=== PATIENT | female | born 1970 | race Caucasian/White ===

== ENCOUNTER 2016-10-16 23:16 | Emergency (ER) | payer MEDICAID, MEDICARE ==
[~2016-10-16] VITALS: Ht 162.6 cm; Wt 63.5 kg
[~2016-10-16 23:16] MED LIST: GABA-531 PO; INSU100V9 SQ; SIMV10TA2 PO
[2016-10-16 23:18] VITALS: BP_SYST 144
[2016-10-16] MEDS ORDERED: NACL 0.9% 1,000 ML IV ONE (23:45)
[2016-10-17 00:11] LABS: BASOPHILS % (AUTO) 0.6 % (0.0-2.0); EOSINOPHILS # (AUTO) 0.7 K/uL (0.0-0.4); EOSINOPHILS % (AUTO) 8.7 % (0.0-4.0); HEMATOCRIT 35.1 % (36-48); HEMOGLOBIN 12.2 g/dL (12.0-16.0); LYMPHOCYTES # (AUTO) 2.6 K/uL (1.0-5.5); LYMPHOCYTES % (AUTO) 33.7 % (20.5-51.5); MEAN CORPUSCULAR HEMOGLOBIN 31 pg (27-31); MEAN CORPUSCULAR HGB CONC 35 % (32-36); MEAN CORPUSCULAR VOLUME 89 fL (79.0-98.0); MONOCYTES # (AUTO) 0.6 K/uL (0.0-1.0); MONOCYTES % (AUTO) 7.9 % (1.7-9.3); NEUTROPHILS # (AUTO) 3.7 K/uL (1.8-7.7); NEUTROPHILS % (AUTO) 49.1 % (40.0-70.0); PLATELET COUNT (AUTO) 226 K/uL (130-430); RED BLOOD CELL COUNT(AUTO) 3.96 MIL/uL (4.2-6.2); WHITE BLOOD COUNT (AUTO) 7.6 K/uL (4.8-10.8)
[2016-10-17 00:34] LABS: ALANINE AMINOTRANSFERASE 27 U/L (12-78); ALBUMIN 3.6 g/dL (3.4-4.8); ANION GAP 8 (5-15); ASPARTATE AMINOTRANSFERASE 17 U/L (10-37); CALCIUM 8.9 mg/dL (8.4-11.0); CHLORIDE 102 mmol/L (98-107); CREATININE 0.96 mg/dL (0.55-1.30); GLUCOSE 319 mg/dL (70-99); SODIUM SERUM 138 mmol/L (136-145); TOTAL BILIRUBIN 0.2 mg/dL (0.0-1.0); UREA NITROGEN, BLOOD 14 mg/dL (8-21)
[2016-10-17 00:35] LABS: SALICYLATE 1 mg/dL (3-30)
[2016-10-17 00:37] LABS: ACETAMINOPHEN < 1 ug/mL (1-30); GFR AFRICAN AMERICAN 80 mL/min (>90)
[2016-10-17 00:38] LABS: ALCOHOL, BLOOD < 3 mg/dL (<10)
[2016-10-17 00:58] LABS: BARBITURATE, URINE NEGATIVE (NEG <=200); BENZODIAZEPINE, URINE NEGATIVE (NEG <=150); CANNABINOID, URINE NEGATIVE (NEG <=50); COCAINE, URINE NEGATIVE (NEG <=150); METHAMPHETAMINES SCREEN,URINE NEGATIVE (NEG <=500); OPIATE, URINE NEGATIVE (NEG <=100); PHENCYCLIDINE SCREEN,URINE NEGATIVE (NEG <=25); UR TRICYCLIC ANTIDEPRESSANTS POSITIVE (NEG <=300); URINE AMPHETAMINE NEGATIVE (NEG <=500); URINE METHADONE NEGATIVE (NEG <=200); URINE OXYCODONE SCREEN NEGATIVE (NEG <=100); URINE PROPOXYPHENE SCREEN NEGATIVE (NEG <=300)
[2016-10-17 01:33] VITALS: BP_SYST 133
== END 2016-10-17 01:33 | disposition home or self-care (01) ==
LOC: SED 23:16
DX: T50.901A Poisoning by unspecified drugs, medicaments and biological substances, accidental (unintentional), initial encounter (principal); E11.40 Type 2 diabetes mellitus with diabetic neuropathy, unspecified; F41.9 Anxiety disorder, unspecified; Z79.4 Long term (current) use of insulin; Y92.89 Other specified places as the place of occurrence of the external cause
CPT/HCPCS: 36415; 80053; 80307; 85025; 96360; 99285; G0480; G0481; G0482; J7030

== ENCOUNTER 2018-06-10 03:18 | Emergency (ER) | payer SELFPAY ==
[~2018-06-10] VITALS: Ht 162.6 cm; Wt 62.6 kg
[2018-06-10 03:20] VITALS: BP_SYST 108
--- NOTE | 2018-06-10 03:20 | NUR ---
Pt placed to ER bed 1 via W/C, to gown, to monitoring and evaluation advisor. Pt appears groggy, yet AAOx3. Sons present and state that as pt came down stairs from bedroom, she got dizzy and fell into a chair. Denies hitting head, unknown if LOC. Pt also c/o severe abdominal pain with N/V.
--- NOTE | 2018-06-10 03:25 | NUR ---
Dr. Kwong at bedside.
--- NOTE | 2018-06-10 03:35 | NUR ---
# 20 gauge angiocath placed to RAC. Use of asceptic technique. Opsite placed over site. Blood return noted. Blood for lab drawn from site. Flushed with 10 cc of normal saline. No evidence of infiltration noted. Patient tolerated well.
--- NOTE | 2018-06-10 03:40 | NUR ---
Pt.'s son, Amador, leaves phone number for status updates ([phone])
[2018-06-10] MEDS ORDERED: INSU100V SQ (03:45)
[2018-06-10] MEDS ORDERED: NACL 0.9% 1,000 ML IV ONE (03:45)
[2018-06-10] MEDS ORDERED: ONDANSETRON HCL 4 MG/2 ML VIAL IVP ONE ×2 (03:45→06:30)
[2018-06-10] MEDS ORDERED: ONDANSETRON HCL 4 MG/2 ML VIAL ONE ×2 (03:46→06:24)
[2018-06-10] MEDS ORDERED: MORPHINE 4 MG/ML INJ. SYRINGE ONE (03:55)
[2018-06-10 04:04] LABS: BASOPHILS # (AUTO) 0.1 K/uL (0.0-0.2); BASOPHILS % (AUTO) 0.7 % (0.0-2.0); EOSINOPHILS # (AUTO) 0.4 K/uL (0.0-0.4); EOSINOPHILS % (AUTO) 4.6 % (0.0-4.0); HEMATOCRIT 39.9 % (36-48); HEMOGLOBIN 12.7 g/dL (12.0-16.0); LYMPHOCYTES # (AUTO) 3.8 K/uL (1.0-5.5); LYMPHOCYTES % (AUTO) 38.6 % (20.5-51.5); MEAN CORPUSCULAR HEMOGLOBIN 29 pg (27-31); MEAN CORPUSCULAR HGB CONC 32 % (32-36); MEAN CORPUSCULAR VOLUME 92 fL (79.0-98.0); MONOCYTES # (AUTO) 0.7 K/uL (0.0-1.0); MONOCYTES % (AUTO) 6.8 % (1.7-9.3); NEUTROPHILS # (AUTO) 4.8 K/uL (1.8-7.7); NEUTROPHILS % (AUTO) 49.3 % (40.0-70.0); PLATELET COUNT (AUTO) 314 K/uL (130-430); RED BLOOD CELL COUNT(AUTO) 4.34 MIL/uL (4.2-6.2); RED CELL DISTRIBUTION WIDTH 11.8 % (9.0-15.0); WHITE BLOOD COUNT (AUTO) 9.8 K/uL (4.8-10.8)
[2018-06-10 04:06] LABS: CALCIUM 9.3 mg/dL (8.4-11.0); CREATININE 0.82 mg/dL (0.55-1.30); POTASSIUM 3.1 mmol/L (3.5-5.1)
[2018-06-10 04:11] LABS: INR 0.9 (0.8-1.2); PROTHROMBIN TIME 9.6 SECS (9.5-12.5)
[2018-06-10 04:12] LABS: ALBUMIN 3.7 g/dL (3.4-4.8); TOTAL BILIRUBIN 0.2 mg/dL (0.0-1.0)
--- NOTE | 2018-06-10 04:15 | NUR ---
Pt to CT via stretcher.
--- NOTE | 2018-06-10 04:30 | NUR ---
Pt returns from CT. Pt states that pain level only decreased to 8/10. Dr. Kwong notified.
[2018-06-10 04:35] LABS: BILIRUBIN,URINE NEGATIVE (NEGATIVE); BLOOD, URINE NEGATIVE (NEGATIVE); CLARITY/URINE SL HAZY (CLEAR); COLOR,URINE YELLOW (YELLOW); GLUCOSE,URINE 3+ (NEGATIVE); KETONES,URINE NEGATIVE (NEGATIVE); LEUKOCYTE ESTERASE ,URINE NEGATIVE (NEGATIVE); NITRITE, URINE POSITIVE (NEGATIVE); PROTEIN URINE TRACE (NEGATIVE); UROBILINOGEN,URINE 0.2 (0.2-1.0)
[2018-06-10] MEDS ORDERED: MORPHINE 4 MG/ML INJ. SYRINGE IVP ONE ×2 (04:45→05:00)
[2018-06-10 05:00] LABS: BACTERIA,URINE MANY /HPF (None Seen); RBC,URINE 0-3 /HPF (0-3)
[2018-06-10 05:01] LABS: HYALINE CASTS, URINE 0-10 /LPF (None Seen); MUCUS,URINE 1+ /LPF (None Seen)
[2018-06-10 05:03] LABS: BARBITURATE, URINE NEGATIVE (NEG <=200); BENZODIAZEPINE, URINE NEGATIVE (NEG <=150); CANNABINOID, URINE NEGATIVE (NEG <=50); COCAINE, URINE NEGATIVE (NEG <=150); METHAMPHETAMINES SCREEN,URINE NEGATIVE (NEG <=500); OPIATE, URINE POSITIVE (NEG <=100); PHENCYCLIDINE SCREEN,URINE NEGATIVE (NEG <=25); UR TRICYCLIC ANTIDEPRESSANTS NEGATIVE (NEG <=300); URINE AMPHETAMINE NEGATIVE (NEG <=500); URINE METHADONE NEGATIVE (NEG <=200); URINE OXYCODONE SCREEN NEGATIVE (NEG <=100); URINE PROPOXYPHENE SCREEN NEGATIVE (NEG <=300)
--- NOTE | 2018-06-10 05:05 | NUR ---
Pt to CT of abdomen/pelvis.
[2018-06-10] MEDS ORDERED: cefTRIAXone 1 GM IVPB PREMIX 50 ML IV ONE (05:15)
--- NOTE | 2018-06-10 05:15 | NUR ---
Pt returns from CT. Pt states that pain level is improved, tolerable at 4/10. No needs verbalized at this time.
--- NOTE | 2018-06-10 05:21 | NUR ---
Pt.'s son at bedside.
--- NOTE | 2018-06-10 06:19 | NUR ---
Pt vomiting copious amounts of undigested food. Dr. Kwong notified and pt to be medicated with Zofran 4 mg IVP.
[2018-06-10] MEDS ORDERED: MAG HYDROX/AL HYDROX/SIMETH 30 ML, BELLADONNA ALKALOIDS/PHENOBARB 10 ML, LIDOCAINE VISC... PO ONE ×3 (06:30)
--- NOTE | 2018-06-10 06:50 | NUR ---
No further vomiting noted. Pt states that nausea has subsided and feels much better.
[2018-06-10 07:00] VITALS: BP_SYST 121
--- NOTE | 2018-06-10 07:00 | NUR ---
Patient given written and verbal discharge instructions and verbalizes understanding. ER MD discussed with patient the results and treatment provided. Patient in stable condition. ID arm band removed. IV catheter removed intact and dressing applied, no active bleeding. Rx of Protonix and Keflex given. Patient educated on pain management and to follow up with PMD. Pain Scale 1/10. Opportunity for questions provided and answered. Medication side effect fact sheet provided.
== END 2018-06-10 07:00 | disposition home or self-care (01) ==
LOC: SED 03:18
DX: N39.0 Urinary tract infection, site not specified (principal); E11.40 Type 2 diabetes mellitus with diabetic neuropathy, unspecified; F41.9 Anxiety disorder, unspecified; Z79.4 Long term (current) use of insulin
CPT/HCPCS: 36415; 71045; 70450; 74176; 80053; 80307; 81000; 82550; 84484; 85025; 85610; 87086; 96361; 96365; 96366; 96375; 99284; G0482; J0696; J2001; J2270; J2405; J7030; 96376

== ENCOUNTER 2020-12-13 18:19 | Emergency (ER) | payer MEDICAID ==
[~2020-12-13] VITALS: Ht 162.6 cm; Wt 68.0 kg
[~2020-12-13 18:19] MED LIST changes: -GABA-531 PO; +INSU100V SQ; -SIMV10TA2 PO
[2020-12-13 18:45] VITALS: BP_SYST 139
--- NOTE | 2020-12-13 18:50 | NUR ---
Patient to ER bed 4 to gown for evaluation. Side rails up. Report given to Lula GAN.
--- NOTE | 2020-12-13 19:00 | NUR ---
EKG done given to Dr. Bardales
--- NOTE | 2020-12-13 19:01 | NUR ---
Pt. bib daughter with c/o not feeling well for 2 days, states feels clammy and has chills, epigastric pain 10/10 and has vomitted 2 X today, hx of insulin dependent diabetes accu check done bs 310, pt. states did not take insulin last night because did not feel well. hx. of pancreatitis too.
--- NOTE | 2020-12-13 19:23 | NUR ---
report to Vero
--- NOTE | 2020-12-13 19:30 | NUR ---
SOPHIA Francis at bedside examining patient.
[2020-12-13] MEDS ORDERED: MAG HYDROX/AL HYDROX/SIMETH 30 ML, LIDOCAINE VISCOUS 2% 15ML (PO) 15 ML, DICYCLOMINE HC... PO ONE ×3 (19:45)
[2020-12-13 20:09] LABS: BASOPHILS # (AUTO) 0.1 K/uL (0.0-0.2); BASOPHILS % (AUTO) 0.7 % (0.0-2.0); EOSINOPHILS # (AUTO) 0.1 K/uL (0.0-0.4); EOSINOPHILS % (AUTO) 0.8 % (0.0-4.0); HEMATOCRIT 37.1 % (36-48); HEMOGLOBIN 12.4 g/dL (12.0-16.0); LYMPHOCYTES # (AUTO) 1.6 K/uL (1.0-5.5); LYMPHOCYTES % (AUTO) 19.6 % (20.5-51.5); MEAN CORPUSCULAR HEMOGLOBIN 31 pg (27-31); MEAN CORPUSCULAR HGB CONC 33 % (32-36); MEAN CORPUSCULAR VOLUME 93 fL (79.0-98.0); MONOCYTES # (AUTO) 0.4 K/uL (0.0-1.0); MONOCYTES % (AUTO) 4.9 % (1.7-9.3); PLATELET COUNT (AUTO) 282 K/uL (130-430); RED BLOOD CELL COUNT(AUTO) 4.01 MIL/uL (4.2-6.2); RED CELL DISTRIBUTION WIDTH 13.4 % (9.0-15.0); WHITE BLOOD COUNT (AUTO) 8.2 K/uL (4.8-10.8)
[2020-12-13 20:17] LABS: ANION GAP 12 (5-15); CALCIUM 9.2 mg/dL (8.4-11.0); CHLORIDE 102 mmol/L (98-107); CREATININE 1.12 mg/dL (0.55-1.30); GLUCOSE 334 mg/dL (70-99); POTASSIUM 4.2 mmol/L (3.5-5.1); SODIUM SERUM 135 mmol/L (136-145); UREA NITROGEN, BLOOD 21 mg/dL (8-21)
[2020-12-13 20:19] LABS: GFR AFRICAN AMERICAN 66 mL/min (>90)
[2020-12-13 20:24] LABS: ALANINE AMINOTRANSFERASE 36 U/L (12-78); ALBUMIN 3.7 g/dL (3.4-4.8); ALCOHOL, BLOOD < 3 mg/dL (<10); ASPARTATE AMINOTRANSFERASE 30 U/L (10-37); LIPASE 167 U/L (73-393); TOTAL BILIRUBIN 0.2 mg/dL (0.0-1.0)
[2020-12-13] MEDS ORDERED: MORPHINE 4 MG INJ. 4 MG/ML VIAL IVP ONE (21:15)
[2020-12-13 21:18] LABS: BILIRUBIN,URINE NEGATIVE (NEGATIVE); BLOOD, URINE NEGATIVE (NEGATIVE); CLARITY/URINE CLEAR (CLEAR); COLOR,URINE YELLOW (YELLOW); GLUCOSE,URINE 2+ (NEGATIVE); KETONES,URINE 1+ (NEGATIVE); LEUKOCYTE ESTERASE ,URINE NEGATIVE (NEGATIVE); PH,URINE 5.5 (5.0-8.0); PROTEIN URINE TRACE (NEGATIVE); UROBILINOGEN,URINE 0.2 (0.2-1.0)
[2020-12-13 21:25] LABS: NITRITE, URINE NEGATIVE (NEGATIVE)
[2020-12-13 21:26] LABS: BACTERIA,URINE FEW /HPF (None Seen); RBC,URINE NONE SEEN /HPF (0-3); WBC,URINE 0-3 /HPF (0-3)
[2020-12-13 21:27] LABS: MUCUS,URINE None Seen /LPF (None Seen)
--- NOTE | 2020-12-13 21:30 | NUR ---
Patient resting quietly. No acute distress noted. Vital signs within normal range.
[2020-12-13] MEDS ORDERED: DICY10CA13 PO (23:04)
[2020-12-13] MEDS ORDERED: OMEP40CA13 PO (23:04)
[2020-12-13] MEDS ORDERED: ONDA-8 TL (23:04)
[2020-12-13 23:31] VITALS: BP_SYST 147
--- NOTE | 2020-12-13 23:33 | NUR ---
Patient given written and verbal discharge instructions and verbalizes understanding. DR. HOLLEY CORTES MD discussed with patient the results and treatment provided. Patient in stable condition. ID arm band removed. IV catheter removed intact and dressing applied, no active bleeding. Rx of DICYCLOMINE, OMEPRAZOLE, ZOFRAN given. Patient educated on pain management and to follow up with PMD. Pain Scale 0/10. Opportunity for questions provided and answered. Medication side effect fact sheet provided.
== END 2020-12-13 23:33 | disposition home or self-care (01) ==
LOC: SED 18:19
DX: R10.13 Epigastric pain (principal); E10.65 Type 1 diabetes mellitus with hyperglycemia; F41.9 Anxiety disorder, unspecified; Z79.4 Long term (current) use of insulin; Z79.899 Other long term (current) drug therapy
CPT/HCPCS: 36415; 76705; 80053; 81000; 82962; 83605; 83690; 84484; 85025; 87040; 93005; 96374; 99285; G0482; J2001; J2270

== ENCOUNTER 2022-04-17 11:02 | Inpatient (IN) | payer MEDICAID ==
[~2022-04-17] VITALS: Ht 162.6 cm; Wt 65.8 kg
[~2022-04-17 11:02] MED LIST changes: +DICY10CA13 PO; +OMEP40CA20 PO; +ONDA-8 TL
[2022-04-17 11:10] VITALS: BP_SYST 90
--- NOTE | 2022-04-17 11:10 | NUR ---
Patient triaged and placed in waiting room. VSS and patient appears in no acute distress at this time. Accompanied by DAUGHTER, awaiting available bed, and MD notified of need for MSE.
[2022-04-17 12:03] LABS: BASOPHILS # (AUTO) 0.1 K/uL (0.0-0.2); BASOPHILS % (AUTO) 0.7 % (0.0-2.0); EOSINOPHILS # (AUTO) 0.3 K/uL (0.0-0.4); EOSINOPHILS % (AUTO) 2.7 % (0.0-4.0); HEMATOCRIT 42.1 % (36-48); HEMOGLOBIN 14.3 g/dL (12.0-16.0); LYMPHOCYTES # (AUTO) 2.5 K/uL (1.0-5.5); MEAN CORPUSCULAR HEMOGLOBIN 30 pg (27-31); MEAN CORPUSCULAR HGB CONC 34 % (32-36); MEAN CORPUSCULAR VOLUME 90 fL (79.0-98.0); MONOCYTES # (AUTO) 0.4 K/uL (0.0-1.0); MONOCYTES % (AUTO) 4.5 % (1.7-9.3); NEUTROPHILS # (AUTO) 6.6 K/uL (1.8-7.7); NEUTROPHILS % (AUTO) 67.1 % (40.0-70.0); PLATELET COUNT (AUTO) 345 K/uL (130-430); RED BLOOD CELL COUNT(AUTO) 4.69 MIL/uL (4.2-6.2); RED CELL DISTRIBUTION WIDTH 12.6 % (9.0-15.0); WHITE BLOOD COUNT (AUTO) 9.8 K/uL (4.8-10.8)
--- NOTE | 2022-04-17 12:16 | NUR ---
Placed in room 3 . Placed on manager cardiac, blood pressure machine and pulse oximeter. To gown for exam. Side rails up. Report given to ELVIA PACE.
[2022-04-17 12:17] LABS: ANION GAP 7 (5-15); CALCIUM 9.4 mg/dL (8.4-11.0); CHLORIDE 97 mmol/L (98-107); CREATININE 1.05 mg/dL (0.55-1.30); GLUCOSE 396 mg/dL (70-99); POTASSIUM 4.4 mmol/L (3.5-5.1); UREA NITROGEN, BLOOD 19 mg/dL (8-21)
[2022-04-17 12:29] LABS: ALANINE AMINOTRANSFERASE 21 U/L (12-78); AMYLASE 130 U/L (0-100); ASPARTATE AMINOTRANSFERASE 21 U/L (10-37); C-REACTIVE PROTEIN QUANT < 0.2 mg/dL (0-0.5); GFR AFRICAN AMERICAN 71 mL/min (>90); LIPASE 1655 U/L (73-393); TOTAL BILIRUBIN 0.2 mg/dL (0.0-1.0)
[2022-04-17] MEDS ORDERED: KETOROLAC TROMETHAMINE 60 MG/2 ML VIAL IM ONE (12:45)
[2022-04-17] MEDS ORDERED: ONDANSETRON 4 MG ODT TAB PO ONE (12:45)
[2022-04-17 14:37] LABS: CHOLESTEROL 336 mg/dL (<200); HDL CHOLESTEROL 62 mg/dL (>55); LDL CHOLESTEROL 231 mg/dL (<100); TRIGLYCERIDES 199 mg/dL (30-150)
--- NOTE | 2022-04-17 15:18 | NUR ---
Admit bed requested Patient will be admitted to care of . Admitted to M/S unit. Diagnosis: ACUTE PACREATITIS Inpatient (Yes) Observation (Yes) Orientation concerns or request close to nursing station (No) Covid Status: NEGATIVE On vent or bipap: NO Isolation requirements STANDARD Needs a sitter NO From Home (Yes) Requires Dialysis (No) Med Rec Completed (Yes)
[2022-04-17 15:22] LABS: BILIRUBIN,URINE NEGATIVE (NEGATIVE); BLOOD, URINE NEGATIVE (NEGATIVE); CLARITY/URINE SL CLOUDY (CLEAR); COLOR,URINE YELLOW (YELLOW); GLUCOSE,URINE 3+ (NEGATIVE); KETONES,URINE NEGATIVE (NEGATIVE); LEUKOCYTE ESTERASE ,URINE NEGATIVE (NEGATIVE); NITRITE, URINE POSITIVE (NEGATIVE); PH,URINE 5.5 (5.0-8.0); PROTEIN URINE NEGATIVE (NEGATIVE); UROBILINOGEN,URINE 0.2 (0.2-1.0)
[2022-04-17 15:30] LABS: BACTERIA,URINE MANY /HPF (None Seen); MUCUS,URINE None Seen /LPF (None Seen); RBC,URINE NONE SEEN /HPF (0-3)
[2022-04-17] MEDS ORDERED: KCL 20 mEq in D5NS 1000 mL 1,000 ML IV ONE (15:30)
[2022-04-17] MEDS ORDERED: cefTRIAXone 1 GM IVPB PREMIX 50 ML IV ONE (15:45)
[2022-04-17] MEDS ORDERED: HYDROmorphone 1 MG/ML INJ. CARTRIDGE IVP PRN (16:15)
[2022-04-17] MEDS ORDERED: ONDANSETRON HCL 4 MG/2 ML VIAL IVP PRN (16:15)
[2022-04-17] MEDS ORDERED: GLIP5TAB13 PO (17:07)
[2022-04-17] MEDS ORDERED: NEU300 PO (17:07)
[2022-04-17] MEDS ORDERED: METF-518 PO ×2 (17:07)
--- NOTE | 2022-04-17 18:11 | NUR ---
ROOM OBTAINED 106B. REPORT CALLED AND GIVEN TO GERARDO RN/ EMT VERÓNICA SENDING PT TO FLOOR IN W/C.
--- NOTE | 2022-04-17 18:15 | NUR ---
RECEIVED REPORT FROM ER NURSE
--- NOTE | 2022-04-17 18:30 | NUR ---
OPENING NOTE PT CAME TO MST UNIT. VITAL SIGNS: 96.9,132/74,87,99% RA, 17. PT AMBULATES TO BATHROOM INDEPENDENTLY. DENIES ANY ACUTE DISTRESS OR SHORTNESS OF BREATH. IV RUNNING WITHOUT RATE. WILL PLACE IV PUMPING MACHINE ORDERED. IV SITE REMAIN INTACT AND PATENT. NO S/S INFILTRATION OR INFECTION. BED IS LOCKED AND AT LOW POSITION. ENCOURAGED TO USE CALL LIGHT FOR ASSISTANCE. WILL CONTINUE TO MONITOR.
--- NOTE | 2022-04-17 19:00 | NUR ---
CLOSING NOTE PT IN BED, HAVING DINNER. DENIES ANY ACUTE DISTRESS. IV RUNNING ORDERED. IV SITE REMAIN CLEAN AND PATENT. SAFETY PRECAUTION IN PLACED. BED IS LOCKED AND AT LOW POSITION. ENDORSED CARE TO MEDICAL ADMINISTRATIVE NURSE.
[2022-04-17 21:52] VITALS: BP_SYST 126
--- NOTE | 2022-04-17 22:15 | NUR ---
DR. KHAN PATIENT SEEN BY DR. KHAN WITH NEW ORDERS, WILL CONTINUE TO MONITOR.
[2022-04-18 01:06] VITALS: BP_SYST 121
[2022-04-18] MEDS: KETOROLAC TROMETHAMINE 15 MG VIAL IVP PRN ×3 (03:21→16:58)
[2022-04-18] MEDS: INSULIN REGULAR, HUMAN 100 UNITS/ML, 3 ML VIAL (humuLIN R) SUBCUT PRN ×4 (05:42→20:37)
[2022-04-18] MEDS: KCL 20 mEq in NS 1000 mL 1,000 ML IV SCH ×2 (05:57→08:30)
[2022-04-18] MEDS ORDERED: KCL 20 mEq in NS 1000 mL 1,000 ML IV ONE (05:58)
[2022-04-18 08:00] VITALS: BP_SYST 136
[2022-04-18 08:53] LABS: BASOPHILS # (AUTO) 0.1 K/uL (0.0-0.2); BASOPHILS % (AUTO) 0.9 % (0.0-2.0); EOSINOPHILS # (AUTO) 0.7 K/uL (0.0-0.4); EOSINOPHILS % (AUTO) 8.3 % (0.0-4.0); HEMATOCRIT 32.8 % (36-48); HEMOGLOBIN 11.3 g/dL (12.0-16.0); LYMPHOCYTES # (AUTO) 2.8 K/uL (1.0-5.5); LYMPHOCYTES % (AUTO) 33.1 % (20.5-51.5); MEAN CORPUSCULAR HEMOGLOBIN 31 pg (27-31); MEAN CORPUSCULAR HGB CONC 35 % (32-36); MEAN CORPUSCULAR VOLUME 89 fL (79.0-98.0); MONOCYTES # (AUTO) 0.5 K/uL (0.0-1.0); MONOCYTES % (AUTO) 5.7 % (1.7-9.3); NEUTROPHILS # (AUTO) 4.3 K/uL (1.8-7.7); PLATELET COUNT (AUTO) 277 K/uL (130-430); RED BLOOD CELL COUNT(AUTO) 3.71 MIL/uL (4.2-6.2); RED CELL DISTRIBUTION WIDTH 12.3 % (9.0-15.0); WHITE BLOOD COUNT (AUTO) 8.3 K/uL (4.8-10.8)
[2022-04-18 09:13] LABS: CALCIUM 8.4 mg/dL (8.4-11.0); CREATININE 0.94 mg/dL (0.55-1.30); POTASSIUM 4.2 mmol/L (3.5-5.1)
--- NOTE | 2022-04-18 09:15 | NUR ---
CONSULT GI ACUTE PANCREATITIS DR AGUILAR [phone] DR BAJWA TANK PROCESSOR S/W MARIA INES EXCHANGE
[2022-04-18 12:00] VITALS: BP_SYST 147
--- NOTE | 2022-04-18 13:30 | NUR ---
SHOWER PT OKAY TO TAKE SHOWER PER DR. KHAN
--- NOTE | 2022-04-18 13:35 | NUR ---
PT CAME BACK FROM SHOWER PT TOLERATED WELL.
--- NOTE | 2022-04-18 15:15 | NUR ---
GI CONSULT DR. ISRAEL AT BEDSIDE, ASSESSING PT. RECEIVED NEW ORDER.
[2022-04-18 16:00] VITALS: BP_SYST 135
[2022-04-18] MEDS: LR 1,000 ML IV SCH ×2 (16:43→20:15)
--- NOTE | 2022-04-18 17:00 | NUR ---
ROUNDING PT IN BED, RESTING. REQUEST FOR PAIN MEDICATION ORDERED. BS CHECKED. ENCOURAGED TO USE CALL LIGHT FOR ASSISTANCE.
--- NOTE | 2022-04-18 18:49 | NUR ---
CLOSING NOTE PT IN BED, KYE ANY DISCOMFORT OR ACUTE DISTRESS. IV RUNNING ORDERED.IV SITE REMAIN PATENT AND INTACT.NO S/S OF INFILTRATION OR INFECTION NOTED. ENCOURAGED TO USE CALL LIGHT FOR ASSISTANCE. BED IS LOCKED AND AT LOW POSITION. SAFETY PRECAUTION IN PLACED. WILL ENDORSE CARE TO CONTINUOUS PILLOWCASE CUTTER NURSE.
[2022-04-18 20:00] VITALS: BP_SYST 146
[2022-04-18] MEDS ORDERED: ENOXAPARIN SODIUM 40 MG/0.4 ML SYRINGE SUBCUT SCH (21:00)
[2022-04-19] VITALS: BP_SYST 138
[2022-04-19] MEDS: LR 1,000 ML IV SCH ×3 (01:15→13:11)
[2022-04-19] MEDS: INSULIN REGULAR, HUMAN 100 UNITS/ML, 3 ML VIAL (humuLIN R) SUBCUT PRN ×2 (05:55→13:23)
[2022-04-19] MEDS: KETOROLAC TROMETHAMINE 15 MG VIAL IVP PRN ×2 (06:05→13:06)
[2022-04-19 08:00] VITALS: BP_SYST 145
[2022-04-19 11:27] VITALS: BP_SYST 140
[2022-04-19] MEDS ORDERED: LevALBUTEROL HCL 1.25 MG/0.5 ML *CONC.* VIAL.NEB (XOPENEX CONC.) INH SCH (14:00)
--- NOTE | 2022-04-19 15:23 | NUR ---
CONSULTATION PAGED REASON FOR CONSULTATION ICH WAS CONSULT CALED?Y PERSON WHO WAS NOTIFIED:TEXT MESSAGED MARK JARA CONSULTING PHYSICIAN:MARK FELDER DIRECTOR OF OPERATIONS SUPPORT SPECIALTY:NEURO DIRECTOR OF OPERATIONS SUPPORT PHONE NUMBER:[phone] REQUESTING PHYSICIAN:
[2022-04-19 15:28] VITALS: BP_SYST 154
--- NOTE | 2022-04-19 17:15 | NUR ---
Dietitian Recommendations * If when medically appropriate, advance to FLD then --> GI Soft, CCHO then --> Cardiac, CCHO Please refer to nutrition assessment for details, thanks! CC, MPH, RDN
[2022-04-19 18:01] VITALS: BP_SYST 145
--- NOTE | 2022-04-19 18:30 | NUR ---
PTDISCHARGED WITH INSTRUCTIONS. PT TO MAKE APTTO SEE GI DOCTORJEFF.FOR FOLLOW UP WITH PRIMARY CARE PHYSICIAN. PT VERBALIZED UNDERSTANDING. TO BE OFF OF WORK TILL END OFWEEK.
== END 2022-04-19 18:30 | disposition home or self-care (01) | DRG 282 ==
LOC: SED 11:02 → SMU 15:21
PROVIDERS: ADMIT Family Medicine; ATTEND Family Medicine
DX: K85.90 Acute pancreatitis without necrosis or infection, unspecified (principal); E87.20 Acidosis, unspecified; E11.65 Type 2 diabetes mellitus with hyperglycemia; Z20.822 Contact with and (suspected) exposure to COVID-19; E78.5 Hyperlipidemia, unspecified; I10 Essential (primary) hypertension; Z79.4 Long term (current) use of insulin; N39.0 Urinary tract infection, site not specified
CPT/HCPCS: 36415; 76376; 76705; 80048; 80053; 80061; 81000; 82150; 82962; 83605; 83690; 83735; 84484; 84703; 85025; 86140; 87086; 96365; 96372; 99285; J0696; J1170; J1650; J1815; J1885; J2405; J3480; Q0162